=== PATIENT | female | born 1970 | race Caucasian/White ===

== ENCOUNTER 2020-11-23 14:05 | Emergency (ER) | payer MEDICAID ==
[~2020-11-23] VITALS: Ht 160 cm; Wt 54.4 kg
[2020-11-23 14:10] VITALS: BP 127/81
[2020-11-23] MEDS ORDERED: SODIUM CHLORIDE 0.9% 1,000 ML IV ONE (14:30)
== END 2020-11-23 18:34 | disposition left against medical advice (07) ==
LOC: EDBD 14:05 → ER 14:05
DX: T40.0X1A Poisoning by opium, accidental (unintentional), initial encounter (principal); R41.82 Altered mental status, unspecified; F17.210 Nicotine dependence, cigarettes, uncomplicated; F15.10 Other stimulant abuse, uncomplicated; Y92.89 Other specified places as the place of occurrence of the external cause

== ENCOUNTER 2023-12-11 23:49 | Emergency (ER) | payer MEDICAID ==
[~2023-12-11] VITALS: Ht 175.3 cm; Wt 56.8 kg
[2023-12-12] MEDS: HYDROcodone-ACET 10/325MG TAB PO ONE (03:12)
[2023-12-12 03:14] VITALS: BP 113/76; PULSE 81; RESP 19; TEMP 98.2; O2SAT 96
[2023-12-12] MEDS ORDERED: IBUP-1456 PO (04:28)
== END 2023-12-12 05:05 | disposition home or self-care (01) ==
LOC: ER 23:49
DX: S82.62XA Displaced fracture of lateral malleolus of left fibula, initial encounter for closed fracture (principal); F17.210 Nicotine dependence, cigarettes, uncomplicated; F15.10 Other stimulant abuse, uncomplicated; W05.1XXA Fall from non-moving nonmotorized scooter, initial encounter; Y93.89 Activity, other specified; Y92.89 Other specified places as the place of occurrence of the external cause; Y99.8 Other external cause status
CPT/HCPCS: 29515; 73610

== ENCOUNTER 2024-02-29 17:02 | Emergency (ER) | payer MEDICAID ==
[~2024-02-29] VITALS: Ht 177.8 cm; Wt 51.3 kg
[~2024-02-29 17:02] MED LIST: IBUP-1456 PO
[2024-02-29] MEDS ORDERED: CEPH500C PO (18:30)
[2024-02-29] MEDS: cefTRIAXone SOD 1,000 MG VL IM ONE (18:47)
[2024-02-29 18:48] VITALS: BP 110/69; PULSE 77; RESP 18; TEMP 98.3; O2SAT 100
== END 2024-02-29 18:57 | disposition home or self-care (01) ==
LOC: ER 17:02
DX: L03.114 Cellulitis of left upper limb (principal); F17.210 Nicotine dependence, cigarettes, uncomplicated
CPT/HCPCS: 96372; 99283; J0696